=== PATIENT | female | born 1995 | race Caucasian/White ===

== ENCOUNTER → 2017-06-07 | Outpatient (CLI) | payer MEDICAID | LOC: LAB 16:56 | PROVIDERS: ATTEND Nurse Practitioner Acute Care | DX: R68.89 Other general symptoms and signs (principal) | CPT/HCPCS: 87804 ==

== ENCOUNTER → 2018-06-02 | Outpatient (CLI) | payer MEDICAID ==
[2018-06-02 14:35] LABS: T.VAGINALIS (WET MOUNT) NO TRICHOMONAS SEEN
[2018-06-02 14:36] LABS: BACTERIA (WET MOUNT) 4+ BACTERIA SEEN; EPITHELIALS (WET MOUNT) 4+ EPITHELIALS SEEN; RBCS (WET MOUNT) NO RBCS SEEN; WBCS (WET MOUNT) 3+ WBCS SEEN; YEAST (WET MOUNT) NO YEAST SEEN
[2018-06-02 16:09] LABS: CHLAM PCR NOT DETECTED (NOT DETECT); GON PCR NOT DETECTED (NOT DETECT)
== END ==
LOC: LAB 14:24
PROVIDERS: ATTEND Nurse Practitioner Family
DX: N89.8 Other specified noninflammatory disorders of vagina (principal); R30.0 Dysuria
CPT/HCPCS: 87086; 87210; 87491; 87591

== ENCOUNTER 2019-02-25 14:56 | Outpatient (CLI) | payer MEDICAID ==
[2019-02-25 15:26] LABS: ABSOLUTE BASOPHILS # (AUTO) 0.1 10^3/uL (0.0-0.2); ABSOLUTE EOSINOPHILS # (AUTO) 0.1 10^3/uL (0.0-0.6); ABSOLUTE LYMPHOCYTES (AUTO) 1.8 10^3/uL (0.5-4.7); ABSOLUTE MONOCYTES (AUTO) 0.7 10^3/uL (0.1-1.4); ABSOLUTE NEUT (AUTO) 8.7 10^3/uL (1.7-8.2); BASOPHILS % (AUTO) 0.6 % (0-2); EOSINOPHILS % (AUTO) 0.8 % (0-6); HEMATOCRIT 38.1 % (36.0-47.0); HEMOGLOBIN 12.6 g/dL (12.0-15.5); LYMPHOCYTES % (AUTO) 16.1 % (13-45); MEAN CORPUSCULAR HEMOGLOBIN 26.2 pg (27.0-33.4); MEAN CORPUSCULAR HGB CONC 33.1 g/dL (32.0-36.0); MEAN CORPUSCULAR VOLUME 79 fl (80-97); MONOCYTES % (AUTO) 6.1 % (3-13); PLATELET COUNT 392 10^3/uL (150-450); RED BLOOD COUNT 4.81 10^6/uL (3.72-5.28); RED CELL DISTRIBUTION WIDTH 19.3 % (11.5-14.0); SEGMENTED NEUTROPHILS % (AUTO) 76.4 % (42-78); TOTAL CELLS COUNTED % (AUTO) 100 %; WHITE BLOOD COUNT 11.5 10^3/uL (4.0-10.5)
[2019-02-25 15:43] LABS: ALANINE AMINOTRANSFERASE 21 U/L (9-52); ALBUMIN 3.6 g/dL (3.5-5.0); ALKALINE PHOSPHATASE 299 U/L (38-126); ANION GAP 9 (5-19); ASPARTATE AMINO TRANSFERASE 17 U/L (14-36); BILIRUBIN,DIRECT 0.3 mg/dL (0.0-0.4); BILIRUBIN,TOTAL 0.4 mg/dL (0.2-1.3); BLOOD UREA NITROGEN 7 mg/dL (7-20); CALCIUM 9.8 mg/dL (8.4-10.2); CARBON DIOXIDE 25 mmol/L (22-30); CHLORIDE 103 mmol/L (98-107); GLUCOSE 83 mg/dL (75-110); POTASSIUM 4.7 mmol/L (3.6-5.0); SODIUM 137.1 mmol/L (137-145); TOTAL PROTEIN 6.8 g/dL (6.3-8.2); URIC ACID 5.1 mg/dL (2.5-6.2)
[2019-02-25 15:44] LABS: APPEARANCE,URINE CLOUDY; BILIRUBIN,URINE NEGATIVE (NEGATIVE); COLOR,URINE YELLOW; GLUCOSE, URINE NEGATIVE (NEGATIVE); KETONES,URINE NEGATIVE (NEGATIVE); LEUKOCYTE ESTERASE,URINE LARGE (NEGATIVE); NITRITE,URINE NEGATIVE (NEGATIVE); PROTEIN,URINE 30 mg/dL (NEGATIVE); URINE SPECIFIC GRAVITY 1.016
[2019-02-25 16:06] LABS: UR PRO/CREAT RATIO RESULT 0.3 mg/mg (0.0-0.2); URINE CREATININE 130.7 mg/dL (16-327); URINE PROTEIN 40.3 mg/dL (<12)
[2019-02-25 16:18] LABS: URINE AMPHETAMINES SCREEN NEGATIVE; URINE BARBITURATES SCREEN NEGATIVE; URINE BENZODIAZEPINES SCREEN NEGATIVE; URINE COCAINE SCREEN NEGATIVE; URINE MARIJUANA (THC) SCREEN NEGATIVE; URINE METHADONE SCREEN NEGATIVE; URINE PHENCYCLIDINE SCREEN NEGATIVE
[2019-02-25] MEDS ORDERED: BETAMET ACET/BETAMET NA INJ 6 MG/1 ML IM ONE (16:27)
[2019-02-25] MEDS ORDERED: BETAMET ACET/BETAMET NA INJ 6 MG/1 ML ONE (17:30)
--- NOTE | 2019-02-25 17:41 | RADIOLOGY REPORT (SQ) ---
EXAM DESCRIPTION: U/S PROFILE W/O STRESS COMPLETED DATE/TIME: 02/25/2019 5:25 pm REASON FOR STUDY: bpp for IUGR COMPARISON: None. TECHNIQUE: Limited estrada-scale realtime and static images of the fetus to measure specified parameter s. LIMITATIONS: None. FINDINGS: HEART RATE: 147 beats per minute. MARAL: 17.4 cm. BREATHING MOVEMENT: 2 points. MOVEMENT: 2 points. POSTURE AND TONE: 2 points. QUALITATIVE MARAL: 2 points. OTHER: Breech lie. IMPRESSION: BIOPHYSICAL PROFILE: 04/03. Trimester of : Third - 28 weeks to delivery COMMENT: BREATHING MOVEMENTS: 2 POINTS: PRESENT 0 POINTS: ABSENT MOTION: 2 POINTS: PRESENT 0 POINTS: ABSENT TONE: 2 POINTS: PRESENT 0 POINTS: ABSENT AMNIOTIC FLUID VOLUME: 2 POINTS: LARGEST POCKET GREATER THAN 2 CM DEPTH. 0 POINTS: NO POCKET OF 2 CM. TECHNICAL DOCUMENTATION: JOB ID: [id number] [employer]- All Rights Reserved Reading location - IP/workstation name: [email or web address]
== END 2019-02-25 18:00 | disposition home or self-care (01) ==
LOC: LC 14:56
PROVIDERS: ATTEND Obstetrics & Gynecology Gynecology
DX: O16.9 Unspecified maternal hypertension, unspecified trimester (principal)
CPT/HCPCS: 59025; 96372; 36415; 87086; 83615; 84156; 84550; 82570; 85025; 81005; 87088; 80053; 87186; 80307; 76819; J0702

== ENCOUNTER 2019-02-26 23:13 | Outpatient (CLI) | payer MEDICAID ==
[2019-02-27] MEDS ORDERED: CEFTRIAXONE INJ 1000 MG VIAL ONE (00:22)
[2019-02-27] MEDS ORDERED: BETAMET ACET/BETAMET NA INJ 6 MG/1 ML ONE (00:23)
[2019-02-27] MEDS ORDERED: LIDOCAINE 1% INJ-PF (10 MG/ML) 30 ML SDV ONE (00:28)
[2019-02-27] MEDS ORDERED: BETAMET ACET/BETAMET NA INJ 6 MG/1 ML IM ONE (00:30)
[2019-02-27] MEDS ORDERED: CEFTRIAXONE INJ 1000 MG VIAL IM ONE (00:45)
[2019-02-27] MEDS ORDERED: LIDOCAINE 1% INJ-PF (10 MG/ML) 30 ML SDV INJ ONE (00:45)
--- NOTE | 2019-02-27 01:24 | Non Stress Test Report ---
Non Stress Test Datetime Report Generated by CPN: 02/27/2019 01:24 DEMOGRAPHIC EGA NST: 36.2 EGA NST: 36.1 INDICATION Indication for Study: Other Indication for Study: Ordered by Provider Indication for Study (NST) Other: LC-Back pain MONITORING Monitor Explained: Monitor Explained; Test Explained; Patient Verbalized Understanding Monitor Explained: Monitor Explained; Test Explained; Patient Verbalized Understanding Time on Monitor: 02/26/2019 23:37 Time on Monitor: 02/25/2019 15:08 Time off Monitor: 02/27/2019 00:43 Time off Monitor: 02/25/2019 17:50 NST Duration: 66 NST Duration: 162 NST INTERVENTIONS NST Interventions: None NST Interventions: PO Hydration Physician Notified NST: Peterson Physician Notified NST: A. London CNM BABY A: [id number] BABY A Movement : Present Movement : Present Contraction Frequency : none Contraction Frequency : OCC FHR Baseline : 135 FHR Baseline : 150 Accelerations : 15X15 Accelerations : 15X15 Decelerations : None Decelerations : None Variability : Moderate 6-25bpm Variability : Moderate 6-25bpm NST Review: Meets Criteria for Reactive NST NST Review: Meets Criteria for Reactive NST NST Review and Verified By : yuri acosta NST Review and Verified By : RAO DODGE RN NST Results: Reactive NST Results: Reactive NST REPORT Report Trigger: Send Report
== END 2019-02-27 00:55 | disposition home or self-care (01) ==
LOC: LC 23:13
PROVIDERS: ATTEND Student in an Organized Health Care Education/Training Program
DX: O47.03 False labor before 37 completed weeks of gestation, third trimester (principal); Z3A.36 36 weeks gestation of pregnancy; O23.43 Unspecified infection of urinary tract in pregnancy, third trimester
CPT/HCPCS: 59025; 96372; J3490; J0702; J0696

== ENCOUNTER 2019-02-27 10:48 | Outpatient (CLI) | payer MEDICAID ==
--- NOTE | 2019-02-27 11:24 | Non Stress Test Report ---
Non Stress Test Datetime Report Generated by CPN: 02/27/2019 11:24 DEMOGRAPHIC EGA NST: 36.3 INDICATION Indication for Study: Ordered by Provider VITAL SIGNS Temperature - NST: 98.0 Pulse - NST: 82 RESP - NST: 18 NBPSYS NST: 124 NBPDIA NST: 82 MONITORING Monitor Explained: Monitor Explained; Test Explained; Patient Verbalized Understanding Time on Monitor: 02/27/2019 11:01 Time off Monitor: 02/27/2019 11:21 NST Duration: 20 NST INTERVENTIONS NST Interventions: None Physician Notified NST: Dr. Jones BABY A: [id number] Movement : Present Contraction Frequency : none FHR Baseline : 135 Accelerations : 15X15 Variability : Moderate 6-25bpm NST Review: Meets Criteria for Reactive NST NST Review and Verified By : Lorelei Snowden RN NST Results: Reactive NST REPORT Report Trigger: Send Report
--- NOTE | 2019-02-27 13:18 | RADIOLOGY REPORT (SQ) ---
EXAM DESCRIPTION: U/S PROFILE W/O STRESS COMPLETED DATE/TIME: 02/27/2019 12:35 pm REASON FOR STUDY: BPP office closed failed previouse attempt COMPARISON: 02/25/2019 TECHNIQUE: Limited estrada-scale realtime and static images of the fetus to measure specified parameter s. LIMITATIONS: None. FINDINGS: HEART RATE: 144 beats per minute. MARAL: 13.6 cm. BREATHING MOVEMENT: 2 points. MOVEMENT: 2 points. POSTURE AND TONE: 2 points. QUALITATIVE MARAL: 2 points. OTHER: Fetus breech orientation IMPRESSION: BIOPHYSICAL PROFILE: 04/03. Trimester of : Third - 28 weeks to delivery COMMENT: BREATHING MOVEMENTS: 2 POINTS: PRESENT 0 POINTS: ABSENT MOTION: 2 POINTS: PRESENT 0 POINTS: ABSENT TONE: 2 POINTS: PRESENT 0 POINTS: ABSENT AMNIOTIC FLUID VOLUME: 2 POINTS: LARGEST POCKET GREATER THAN 2 CM DEPTH. 0 POINTS: NO POCKET OF 2 CM. TECHNICAL DOCUMENTATION: JOB ID: [id number]- All Rights Reserved Reading location - IP/workstation name: [email or web address]
== END 2019-02-27 13:37 | disposition home or self-care (01) ==
LOC: LC 10:48
PROVIDERS: ATTEND Obstetrics & Gynecology Gynecology
DX: O36.8330 Maternal care for abnormalities of the fetal heart rate or rhythm, third trimester, not applicable or unspecified (principal); Z3A.36 36 weeks gestation of pregnancy
CPT/HCPCS: 59025; 76819

== ENCOUNTER 2019-02-28 10:44 | Inpatient (IN) | payer MEDICAID ==
[2019-02-28 11:17] LABS: APPEARANCE,URINE SLIGHTLY-CLOUDY; BILIRUBIN,URINE NEGATIVE (NEGATIVE); COLOR,URINE YELLOW; GLUCOSE, URINE NEGATIVE (NEGATIVE); KETONES,URINE NEGATIVE (NEGATIVE); LEUKOCYTE ESTERASE,URINE MODERATE (NEGATIVE); NITRITE,URINE NEGATIVE (NEGATIVE); PROTEIN,URINE 30 mg/dL (NEGATIVE); URINE SPECIFIC GRAVITY 1.011; UROBILINOGEN,URINE NEGATIVE mg/dL (<2.0)
[2019-02-28 11:34] LABS: URINE AMPHETAMINES SCREEN NEGATIVE; URINE BARBITURATES SCREEN NEGATIVE; URINE BENZODIAZEPINES SCREEN NEGATIVE; URINE COCAINE SCREEN NEGATIVE; URINE MARIJUANA (THC) SCREEN NEGATIVE; URINE METHADONE SCREEN NEGATIVE; URINE PHENCYCLIDINE SCREEN NEGATIVE
[2019-02-28] MEDS ORDERED: HYDRALAZINE HCL INJ/PF 20 MG/1 ML SDV ONE (12:14)
[2019-02-28] MEDS ORDERED: MISOPROSTOL 0.2 MG TABLET ONE (12:22)
[2019-02-28] MEDS ORDERED: LIDOCAINE 1% INJ-PF (10 MG/ML) 30 ML SDV ONE (12:22)
[2019-02-28] MEDS ORDERED: OXYTOCIN 10 UNIT/ML VIAL ONE ×2 (12:22→12:47)
[2019-02-28] MEDS ORDERED: OXYTOCIN/NORMAL SALINE 0 UNIT/0 ML RTUINJ ONE (12:22)
[2019-02-28] MEDS ORDERED: CITRIC ACID/SODIUM CITRATE ORAL SOLN 15 ML UDCUP ONE (12:30)
[2019-02-28] MEDS ORDERED: CEFAZOLIN 2 GM/D5W RTU 2 GM/50 ML RTUPB IV ONE (12:31)
[2019-02-28] MEDS ORDERED: CEFAZOLIN SODIUM 1 GM in DEXTROSE 5%-WATER 50 ML IV PRN (12:35)
[2019-02-28] MEDS ORDERED: PROPOFOL INJ 200 MG/20 ML VIAL IV ONE (12:46)
[2019-02-28] MEDS ORDERED: ONDANSETRON HCL INJ/PF 4 MG/2 ML SDV ONE (12:46)
[2019-02-28] MEDS ORDERED: MIDAZOLAM 2 MG/2 ML INJ ONE (12:46)
[2019-02-28] MEDS ORDERED: FENTANYL CITRATE INJ/PF 100 MCG/2 ML AMPUL ONE ×2 (12:47→12:59)
[2019-02-28] MEDS ORDERED: MORPHINE SULFATE 10 MG/ML INJ ONE ×2 (12:59→17:55)
[2019-02-28] MEDS ORDERED: MORPHINE SULFATE 10 MG/ML INJ IV PRN (13:22)
[2019-02-28] MEDS ORDERED: MEASLES,MUMPS&RUBELLA VACC/PF 0.5 ML VIAL SUBCUT PRN (13:22)
[2019-02-28] MEDS ORDERED: PROMETHAZINE HCL INJ 25 MG/1 ML VIAL IV PRN (13:22)
[2019-02-28] MEDS ORDERED: DIPH/PERTUSS(ACELL)/TETANUS VAC/PF 0.5 ML SYR (>=10YO) IM PRN (13:22)
[2019-02-28] MEDS ORDERED: ACETAMINOPHEN 325 MG TABLET PO PRN (13:22)
[2019-02-28] MEDS ORDERED: OXYCODONE-ACETAMINOPHEN 5-325 MG TABLET PO PRN (13:22)
[2019-02-28] MEDS ORDERED: OXYTOCIN/NORMAL SALINE 20 UNIT/1,000 ML RTUINJ IV PRN (13:22)
[2019-02-28] MEDS ORDERED: RINGERS SOLUTION,LACTATED 1,000 ML IV PRN (13:22)
[2019-02-28] MEDS ORDERED: SIMETHICONE 80 MG TAB.CHEW PO PRN (13:22)
[2019-02-28] MEDS ORDERED: AMPICILLIN SOD/SULBACTAM 3 GM VIAL IV SCH (13:30)
--- NOTE | 2019-02-28 13:42 | RADIOLOGY REPORT (SQ) ---
EXAM DESCRIPTION: KUB/ABDOMEN (SINGLE VIEW) COMPLETED DATE/TIME: 02/28/2019 1:34 pm REASON FOR STUDY: no count c/s COMPARISON: None. NUMBER OF VIEWS: One view. TECHNIQUE: Supine radiographic image of the abdomen acquired. LIMITATIONS: None. FINDINGS: No radiopaque surgical material or instrument identified about the included portion of the mid abdomen and pelvis. Large burden of stool in the colon. Goldsmith catheter in the bladder. IMPRESSION: No radiopaque surgical material or instrument identified about the included portion of t he mid abdomen and pelvis. Large burden of stool in the colon. Goldsmith catheter in the bladder. TECHNICAL DOCUMENTATION: JOB ID: [id number] [employer]- All Rights Reserved Reading location - IP/workstation name: [email or web address]
--- NOTE | 2019-02-28 13:53 | Admission Physical ---
Datetime Report Generated by CPN: 02/28/2019 13:52 CURRENT ADMISSION Chief Complaint: Uterine Contractions Indication for Induction: Not Applicable Admit Impression : Active Labor; Intact Membranes Admit Impression- Other: Pre-Eclampsia with severe range BPs today Breech presentation Complete dilation per RN with BBOW no presenting part identified per engraving press operator Plan: Initiate Section Protocol Admit Plan- Other: Treated for UTI, started on Macrobid yesterday Dr. Elam notified immediately, orders for stat CS recieved ALLERGIES Medication Allergies: No Medication Allergies: No Known Allergies (02/28/2019) Latex: Unknown OBSTETRICAL HISTORY EDC: 03/24/2019 00:00 : 1 Gestational Diabetes: Yes Rh Sensitization: No Incompetent Cervix: No LAURA: No Infertility: No ART Treatment: No Uterine Anomaly: No IUGR: No Hx Previous C/S: No Macrosomia: No Hx Loss/Stillborn: No PIH: No Hx : No Placenta Previa/Abruption: No Depression/PP Depression: No PTL/PROM: No Post Hemorrhage: No Current Procedures: Ultrasound; NST Obstetrical History Comments: G1- current SEE RECORDS Alcohol: No Marijuana : No Cocaine: No Other Illicit Drugs: No Cigarettes: Never Smoker. 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 Surgery: No Heart Disease: No Hosp/Surgery: No Autoimmune Disorder: No Anesthetic Complications: No Kidney Disease: No Abnormal Pap Smear: No Neuro/Epilepsy: No Psychiatric Disorders: No Other Medical Diseases: No Hepatitis/Liver Disease: No Significant Family History: No Varicosities/Phlebitis: No Trauma/Violence : No Thyroid Dysfunction: No INFECTIOUS HISTORY Gonorrhea: No Genital Herpes: No Chlamydia: No Tuberculosis: No Syphilis: No Hepatitis: No HIV/AIDS Exposure: No Rash or Viral Illness: No HPV: No PHYSICAL EXAM General: Normal HEENT: Deferred Neurologic: Normal Thyroid: Deferred Heart: Normal Lungs: Normal Breast: Deferred Back: Deferred Abdomen: Normal Genitourinary Exam: Normal Extremities: Deferred DTRs: Deferred Pelvic Type: Not Done Physical Exam Comments: Limited exam due to emergency, pt c/o wanting to push with known breech presentation Cervix exam per RN Vital Signs: Reviewed FETUS A EGA: 36.4 Monitoring: External US FHR- Baseline: 150 Variability: Moderate 6-25bpm Presentation: Breech Admit Comment: Labor check report called to me that patient was in pain from UTI, had elevated BPs and elevated 24*urine >900 and known breech presentation Dr. Elam notified immediately, orders to admit for CS and give hydralazine based on severe range BPs Received another call shortly after within about 10 minutes stating that patient was fully dilated and wanting to push. Dr. Elam notified again, orders for Stat CS recieved. PLANS FOR LABOR AND DELIVERY Labor and Delivery: None Pain Management: Epidural Feeding Preference: Both Benefit of Breast Feed Discussed: Yes Circumcision: Yes INFORMED CONSENT Assignment: Graciela Elam MD Signature: with User ID: [email or web address] : with User ID: [email or web address]
--- NOTE | 2019-02-28 13:54 | OPERATIVE REPORT E ---
Operative Report NAME: PING CAMARA : 1995 AGE: 23Y DATE OF SURGERY: 02/28/2019 ROOM: LR200 PREOPERATIVE DIAGNOSES: 1. A 36 weeks and 4 days labor, breech presentation. 2. Pre-eclampsia. POSTOPERATIVE DIAGNOSES: 1. A 36 weeks and 4 days labor, breech presentation. 2. Pre-eclampsia. SURGEON: JOSE ANGEL DRUMMOND M.D. ANESTHESIA: Dr. Parker with general. FINDINGS: Male in ruddy breech presentation deep in the pelvis. Apgars of 5 and 9. COMPLICATIONS: None. ESTIMATED BLOOD LOSS: 750 mL. SPECIMENS REMOVED: None. PROCEDURE: Primary STAT low transverse hysterotomy section with extension into the active segment by T incision. PROCEDURE IN DETAIL: The patient was taken to the operating room and prepared and draped in the normal sterile fashion in the supine position with a leftward tilt. A transverse skin incision was made with a scalpel and carried through to the underlying layer of fascia. With the same scalpel, the fascia was excised in the midline and extended laterally with Patel's. The rectus muscle was dissected from the fascia bluntly and the rectus muscle was divided. The peritoneal cavity was entered bluntly. The bladder blade was inserted. The hysterotomy was nicked with the scalpel and extended laterally with surgeon finger fracture. Delivery of the feet was difficult and required several attempts, but finally, feet were delivered out of the pelvis, and it was noted that the infant was in a face-up presentation at this point. We continued with delivery, sweeping the arms and legs using Pinard maneuvers as needed, and we attempted to elevate the feet over the patient's abdomen and delivered the head; however, this was unsuccessful, so I took a pair of bandage scissors and cut vertically up the uterus to allow for additional room. I attempted once more to deliver the infant's head and this was unsuccessful. I tried to place my hand behind the 's head to facilitate delivery, but the uterus was contracted significantly around the . I then extended the incision once more with the bandage scissors, and at this point, we were able to successfully deliver baby. The cord was clamped and cut and the was handed off to awaiting pediatricians. Cord blood was collected. The placenta was removed manually. The uterus was exteriorized and cleared of clots and debris. The hysterotomy was closed with 0 Monocryl in a running locked fashion and the same suture was used to imbricate to ensure hemostasis. The vertical segment was also closed using a running, locked method using 0 Monocryl. The uterus was returned to the abdomen and piece of Interceed was placed along the incision site. The rectus muscle and peritoneum were reapproximated with 2 mattress stitches of 2-0 Chromic. The fascia was closed with 0 Vicryl, the subcutaneous layer was closed with plain catgut, and the skin was closed with 4-0 Vicryl. The patient tolerated the procedure well and went to PACU in stable condition. An x-ray was performed at the end of the case to ensure counts, and this was negative. DICTATING PHYSICIAN: JOSE ANGEL DRUMMOND M.D. [id number] PHY#: [id number] ID: [id number] JOB#: [id number] ACCT: [id number] cc:JOSE ANGEL DRUMMOND M.D. >
[2019-02-28] MEDS ORDERED: ACETAMINOPHEN 1,000 MG/100 ML RTUPB IV PRN (14:00)
[2019-02-28] MEDS ORDERED: ACETAMINOPHEN 1,000 MG/100 ML RTUPB IV ONE (14:04)
[2019-02-28] MEDS ORDERED: MEPERIDINE HCL/PF INJ 25 MG/1 ML DISP.SYRIN ONE (14:22)
[2019-02-28] MEDS ORDERED: KETOROLAC TROMETHAMINE INJ/PF 30 MG/1 ML SDV ONE (14:27)
[2019-02-28] MEDS: KETOROLAC TROMETHAMINE INJ/PF 30 MG/1 ML SDV IV SCH (14:31)
[2019-02-28] MEDS ORDERED: SUCCINYLCHOLINE CHLORIDE INJ 200 MG/10 ML VIAL ONE (14:54)
[2019-02-28] MEDS ORDERED: MAGNESIUM SULFATE 20 GM/500 ML RTUINJ IV ONE (15:00)
[2019-02-28] MEDS ORDERED: MAGNESIUM SULFATE 4 GM/100 ML RTUPB IV ONE (15:00)
[2019-02-28] MEDS ORDERED: OXYTOCIN/NORMAL SALINE 20 UNIT/1,000 ML RTUINJ ONE (15:03)
[2019-02-28] MEDS ORDERED: MAGNESIUM SULFATE PF/INJ 40 MEQ/10 ML SDV IV ONE (15:04)
[2019-02-28] MEDS ORDERED: MAGNESIUM SULFATE 20 GM/500 ML IV PRN (15:32)
[2019-02-28 16:14] LABS: ABSOLUTE BASOPHILS # (AUTO) 0.1 10^3/uL (0.0-0.2); ABSOLUTE LYMPHOCYTES (AUTO) 1.5 10^3/uL (0.5-4.7); ABSOLUTE MONOCYTES (AUTO) 0.9 10^3/uL (0.1-1.4); ABSOLUTE NEUT (AUTO) 11.9 10^3/uL (1.7-8.2); BASOPHILS % (AUTO) 0.7 % (0-2); EOSINOPHILS % (AUTO) 0.2 % (0-6); HEMATOCRIT 34.4 % (36.0-47.0); HEMOGLOBIN 11.3 g/dL (12.0-15.5); LYMPHOCYTES % (AUTO) 10.1 % (13-45); MEAN CORPUSCULAR HEMOGLOBIN 26.3 pg (27.0-33.4); MEAN CORPUSCULAR HGB CONC 32.8 g/dL (32.0-36.0); MEAN CORPUSCULAR VOLUME 80 fl (80-97); MONOCYTES % (AUTO) 6.5 % (3-13); PLATELET COUNT 365 10^3/uL (150-450); RED BLOOD COUNT 4.29 10^6/uL (3.72-5.28); RED CELL DISTRIBUTION WIDTH 19.5 % (11.5-14.0); SEGMENTED NEUTROPHILS % (AUTO) 82.5 % (42-78); TOTAL CELLS COUNTED % (AUTO) 100 %; WHITE BLOOD COUNT 14.4 10^3/uL (4.0-10.5)
[2019-02-28 16:33] LABS: ALANINE AMINOTRANSFERASE 22 U/L (9-52); ALKALINE PHOSPHATASE 234 U/L (38-126); ANION GAP 9 (5-19); ASPARTATE AMINO TRANSFERASE 23 U/L (14-36); BILIRUBIN,DIRECT 0.2 mg/dL (0.0-0.4); BILIRUBIN,TOTAL 0.2 mg/dL (0.2-1.3); BLOOD UREA NITROGEN 8 mg/dL (7-20); CALCIUM 8.5 mg/dL (8.4-10.2); CARBON DIOXIDE 23 mmol/L (22-30); CHLORIDE 104 mmol/L (98-107); GLUCOSE 82 mg/dL (75-110); POTASSIUM 3.8 mmol/L (3.6-5.0); SODIUM 135.8 mmol/L (137-145); TOTAL PROTEIN 5.8 g/dL (6.3-8.2); URIC ACID 5.8 mg/dL (2.5-6.2)
--- NOTE | 2019-02-28 17:21 | Delivery Summary ---
Del Sum A-C Datetime Report Generated by CPN: 02/28/2019 17:21 DELIVERY PERSONNEL DELIVERY PERSONNEL: [id number] Delivery Doctor:: Graciela Elam MD Anesthesiologist:: Beronica Parker MD MERCHANDISE SUPERVISOR:: Cosme Roa CRNA Labor and Delivery Nurse:: Keila Donaldson RN Commercial Fisher:: Keila Donaldson RN Commercial Green Building Architect:: Dr. Adriel Akers Nurse Nurse:: Breanna Henriquez RN Editor Map/WILDLIFE CONTROL OPERATOR: Cassidy Vazquez RN Editor Map/WILDLIFE CONTROL OPERATOR: ST Tasha Additional Personnel: : Evette Cortez RNC MATERNAL INFORMATION Delivery Anesthesia: General Medications After Delivery: Other-Please Comment Meds After Delivery Comment: See Anesthesia record Maternal Complications: Other Complication Details: severe preeclampsia, transverse lie LABOR SUMMARY EDC: 03/24/2019 00:00 No. Babies in Womb: 1 Attempted: No Labor Anesthesia: None LABOR INFORMATION Reason for Induction: Not Applicable Complete Dilatation: 02/28/2019 12:20 Oxytocin: N/A Group B Beta Strep: unknown Antibiotics # of Doses: 0 Steroids Given: > 24 Hours before Delivery Reason Steroids Not Administered: Indication MEMBRANES Membranes Rupture Method: Artificial Rupture of Membranes: 02/28/2019 12:38 Length of Rupture (hr): 0.08 Amniotic Fluid Color: Clear Amniotic Fluid Amount: Moderate Amniotic Fluid Odor: Normal STAGES OF LABOR Stage 2 hr: 0 Stage 2 min: 23 Stage 3 hr: 0 Stage 3 min: 1 VAGINAL DELIVERY Episiotomy: None Laceration #1: None Laceration Extension #1: N/A Sponge Count Correct: N/A CSECTION DELIVERY Primary Indication: Transverse/Complex Presentation Secondary Indication: N/A CSection Urgency: Emergency CSection Incidence: Primary Labor: Labor Elective: Nonelective CSection Incision: Lower Uterine Transverse; T Extension of Incision BABY A INFORMATION Delivery Date/Time: 02/28/2019 12:43 Method of Delivery: Born in Route : No : N/A Forceps: N/A Vacuum Extraction: N/A Shoulder Dystocia : No PRESENTATION/POSITION BABY A Presentation: Breech Cephalic Presentation: N/A Vertex Position: n/a Breech Presentation: Single Footling PLACENTA INFORMATION BABY A Placenta Delivery Time : 02/28/2019 12:44 Placenta Method of Delivery: Manual Removal Placenta Status: Delivered SCORES BABY A Heart Rate 1 min: >100 bpm Resp Effort 1 min: Slow, Irregular Reflex Irritability 1 min: Grimace Muscle Tone 1 min: Some Flexion of Extremities Color 1 min: Blue/Pale Resuscitation Effort 1 min: Tactile Stimulation SCORE 1 MIN: 5 Heart Rate 5 min: >100 bpm Resp Effort 5 min: Good Cry Reflex Irritability 5 min: Cough or Sneeze or Pulls Away Muscle Tone 5 min: Active Motion Color 5 min: Body Sweet Water, Extremities Blue Resuscitation Effort 5 min: Tactile Stimulation SCORE 5 MIN: 9 INFANT INFORMATION BABY A Gestational Age at Delivery: 36.4 Gestational Status: Late - 34- 36.6 Weeks Outcome : Liveborn Condition : Stable Infant Sex: Male IDENTIFICATION BABY A Infant Verification Date/Time: 02/28/2019 12:45 ID Band Number: [id number] Mother's Name Verified: Yes RN Verifying Infant: J Field, RN Additional Verifying Personnel: Rere Cortez RNC WEIGHT/LENGTH BABY A Birthweight (gm): 1880 Weight (lb): 4 Infant Weight (oz): 2 Length (in): 17.00 Infant Length (cm): 43.18 CORD INFORMATION BABY A No. Cord Vessels: 3 Nuchal Cord : N/A Cord Blood Taken: Yes-For Eval (Mom's Blood Type - or O+) Infant Suction: Mouth; Nose; Pharynx ASSESSMENT BABY A Infant Complications: None Physical Findings at Delivery: Within Normal Limits Skin to Skin: Yes Commercial Green Building Architect/ALS Called : No Infant Care By: Rafa Henriquez RN Transferred To: NICU BABY B INFORMATION : N/A SIGNATURES : I was personally available for consultation and serving as supervising physician for the MLP.
[2019-02-28] MEDS ORDERED: DOCUSATE SODIUM 100 MG CAPSULE ONE (17:55)
[2019-02-28] MEDS: DOCUSATE SODIUM 100 MG CAPSULE PO SCH (18:04)
[2019-02-28] MEDS: AMPICILLIN SODIUM/SULBACTAM NA 3 GM in NORMAL SALINE 100 ML IV SCH (18:05)
[2019-03-01] MEDS ORDERED: FUROSEMIDE INJ/PF 20 MG/2 ML SDV IV ONE (01:12)
[2019-03-01] MEDS ORDERED: KETOROLAC TROMETHAMINE INJ/PF 30 MG/1 ML SDV ONE (01:15)
[2019-03-01] MEDS ORDERED: FUROSEMIDE INJ/PF 40 MG/4 ML SDV ONE (01:15)
[2019-03-01] MEDS: KETOROLAC TROMETHAMINE INJ/PF 30 MG/1 ML SDV IV SCH ×2 (01:20→10:07)
[2019-03-01] MEDS ORDERED: MAGNESIUM SULFATE 20 GM/500 ML RTUINJ IV ONE (01:25)
[2019-03-01] MEDS ORDERED: AMPICILLIN SOD/SULBACTAM 3 GM VIAL ONE (02:00)
[2019-03-01] MEDS: AMPICILLIN SODIUM/SULBACTAM NA 3 GM in NORMAL SALINE 100 ML IV SCH ×2 (02:05→10:46)
[2019-03-01] MEDS: OXYCODONE-ACETAMINOPHEN 5-325 MG TABLET PO PRN ×3 (05:27→16:42)
[2019-03-01] MEDS ORDERED: OXYCODONE-ACETAMINOPHEN 5-325 MG TABLET ONE (05:27)
[2019-03-01 06:40] LABS: HEMATOCRIT 32.6 % (36.0-47.0); HEMOGLOBIN 10.7 g/dL (12.0-15.5); MEAN CORPUSCULAR HEMOGLOBIN 26.6 pg (27.0-33.4); MEAN CORPUSCULAR HGB CONC 32.9 g/dL (32.0-36.0); MEAN CORPUSCULAR VOLUME 81 fl (80-97); PLATELET COUNT 313 10^3/uL (150-450); RED BLOOD COUNT 4.02 10^6/uL (3.72-5.28); RED CELL DISTRIBUTION WIDTH 19.9 % (11.5-14.0); WHITE BLOOD COUNT 14.1 10^3/uL (4.0-10.5)
[2019-03-01] MEDS ORDERED: KETOROLAC TROMETHAMINE INJ/PF 30 MG/1 ML SDV IV ONE (10:00)
[2019-03-01] MEDS: DOCUSATE SODIUM 100 MG CAPSULE PO SCH ×2 (10:08→17:27)
[2019-03-01] MEDS: PRENATAL VITAMIN W DHA CAPSULE PO SCH (10:08)
--- NOTE | 2019-03-01 10:32 | PDOC PROGRESS REPORT ---
Subjective-OB Progress Note for:: 03/01/19 Subjective: Pt resting, c/o pelvic pain. FC to BSD light yellow urine. She is otherwise doing well, post mag today with stable blood pressures. Bleeding normal per RN. Physical Exam (OB) Vital Signs: Temp Pulse Resp BP Pulse Ox 98.1 F 103 H 18 131/84 H 95 03/01/19 07:45 03/01/19 07:45 03/01/19 07:45 03/01/19 07:45 03/01/19 07:45 Intake & Output 02/28/19 03/01/19 03/02/19 06:59 06:59 06:59 Intake Total 100 Balance 100 Weight 103.4 kg - Dressing Removed: No Incision: Dressing, Well Approximated - Lochia Lochia Amount: Small 10-25 ml Lochia Color: Rubra/Red - Abdomen Description: Tender Fundal Description: Firm Fundal Height: u/u - u/2 Objective-Diagnostic Laboratory: 03/01/19 06:33 02/28/19 15:57 02/28/19 02/28/19 02/28/19 10:54 15:57 15:57 WBC 14.4 H RBC 4.29 Hgb 11.3 L Hct 34.4 L MCV 80 MCH 26.3 L MCHC 32.8 RDW 19.5 H Plt Count 365 Seg Neutrophils % 82.5 H Lymphocytes % 10.1 L Monocytes % 6.5 Eosinophils % 0.2 Basophils % 0.7 Absolute Neutrophils 11.9 H Absolute Lymphocytes 1.5 Absolute Monocytes 0.9 Absolute Eosinophils 0.0 Absolute Basophils 0.1 Sodium 135.8 L Potassium 3.8 Chloride 104 Carbon Dioxide 23 Anion Gap 9 BUN 8 Creatinine 0.38 L Est GFR ( Amer) > 60 Est GFR (Non-Af Amer) > 60 Glucose 82 Uric Acid 5.8 Calcium 8.5 Total Bilirubin 0.2 AST 23 ALT 22 Alkaline Phosphatase 234 H Total Protein 5.8 L Albumin 3.0 L Urine Color YELLOW Urine Appearance SLIGHTLY-CLOUDY Urine pH 8.0 Ur Specific Pollard 1.011 Urine Protein 30 H Urine Glucose (UA) NEGATIVE Urine Ketones NEGATIVE Urine Blood MODERATE H Urine Nitrite NEGATIVE Ur Leukocyte Esterase MODERATE H Urine WBC (Auto) 12 Urine RBC (Auto) 9 Blood Type Antibody Screen 02/28/19 03/01/19 03/01/19 15:57 06:33 06:33 WBC 14.1 H RBC 4.02 Hgb 10.7 L Hct 32.6 L MCV 81 MCH 26.6 L MCHC 32.9 RDW 19.9 H Plt Count 313 Seg Neutrophils % Lymphocytes % Monocytes % Eosinophils % Basophils % Absolute Neutrophils Absolute Lymphocytes Absolute Monocytes Absolute Eosinophils Absolute Basophils Sodium Potassium Chloride Carbon Dioxide Anion Gap BUN Creatinine Est GFR ( Amer) Est GFR (Non-Af Amer) Glucose Uric Acid Calcium Total Bilirubin AST ALT Alkaline Phosphatase Total Protein Albumin Urine Color Urine Appearance Urine pH Ur Specific Pollard Urine Protein Urine Glucose (UA) Urine Ketones Urine Blood Urine Nitrite Ur Leukocyte Esterase Urine WBC (Auto) Urine RBC (Auto) Blood Type A NEGATIVE A NEGATIVE Antibody Screen NEGATIVE Assessment and Plan(PN) - Assessment and Plan (1) Pre-eclampsia Qualifiers: Trimester: third trimester Qualified Code(s): O14.93 - Unspecified pre- eclampsia, third trimester Is this a current diagnosis for this admission?: Yes (2) Breech presentation Qualifiers: Fetus number: single or unspecified fetus Qualified Code(s): O32.1XX0 - Maternal care for breech presentation, not applicable or unspecified Is this a current diagnosis for this admission?: Yes (3) Intrauterine growth restriction (IUGR) affecting care of mother Qualifiers: Fetus number: single or unspecified fetus Trimester: third trimester Qualified Code(s): O36.5930 - Maternal care for other known or suspected poor growth, third trimester, not applicable or unspecified Is this a current diagnosis for this admission?: Yes (4) Urinary tract infection affecting care of mother in third trimester, an tepartum Is this a current diagnosis for this admission?: Yes (5) S/P emergency section Is this a current diagnosis for this admission?: Yes - Time Spent with Patient Time with patient: Less than 15 minutes Medications reviewed and adjusted accordingly: Yes - Disposition Anticipated Discharge: Home Within: within 48 hours
[2019-03-01] MEDS ORDERED: IBUPROFEN 800 MG TABLET PO SCH (12:00)
[2019-03-01] MEDS: IBUPROFEN 800 MG TABLET PO SCH (17:27)
[2019-03-02] MEDS: IBUPROFEN 800 MG TABLET PO SCH ×4 (00:22→17:38)
--- NOTE | 2019-03-02 09:00 | PDOC DISCHARGE SUMMARY ---
Final Diagnosis Discharge Date: 03/02/19 - Final Diagnosis (1) Pre-eclampsia Is this a current diagnosis for this admission?: Yes (2) Breech presentation Is this a current diagnosis for this admission?: Yes (3) Intrauterine growth restriction (IUGR) affecting care of mother Is this a current diagnosis for this admission?: Yes (4) Urinary tract infection affecting care of mother in third trimester, antepartum Is this a current diagnosis for this admission?: Yes (5) S/P emergency section Is this a current diagnosis for this admission?: Yes Discharge Data - Discharge Medication Home Medications: 95/Iron Fum/Folic/Dha [ + Dha Combo Pack] 1 cap PO DAILY 02/25/19 Reason(s) for Admission: Onset of Labor, Ceasarean Section-Primary, Labor, Medical Complications, Obstetric Complications Admission Note: Breech presentation, pre-eclampsia, labor, IUGR Intrapartum Procedure(s): : Low Cervical, Transverse Intrapartum Procedure Note: T incision - Diagnosis Test Laboratory: Temp Pulse Resp BP Pulse Ox 98.1 F 130 H 18 140/83 H 95 03/02/19 03:43 03/02/19 03:43 03/02/19 03:43 03/02/19 03:43 03/02/19 03:43 02/28/19 02/28/19 03/01/19 10:54 15:57 06:33 RBC 4.29 4.02 Hgb 11.3 L 10.7 L Hct 34.4 L 32.6 L Urine Opiates Screen NEGATIVE - Discharge information/Instructions Discharge Activity: Balance Activity w/Rest, No Lifting Over 10 Pounds, No Lifting/Push/Pulling, Pelvic Rest, No tub bath Discharge Diet: Regular Disposition: HOME, SELF-CARE Follow up with: [facility] in: 5, Days
[2019-03-02] MEDS: NIFEDIPINE 30 MG TAB.ER.24 PO SCH ×2 (10:00→10:04)
[2019-03-02] MEDS: DOCUSATE SODIUM 100 MG CAPSULE PO SCH ×2 (10:04→17:39)
[2019-03-02] MEDS: PRENATAL VITAMIN W DHA CAPSULE PO SCH (10:04)
--- NOTE | 2019-03-02 23:58 | EKG REPORT ---
SEVERITY:- OTHERWISE NORMAL ECG - SINUS TACHYCARDIA : Confirmed by: Chris Boyd 02-Mar-2019 23:57:35
[2019-03-03] MEDS: IBUPROFEN 800 MG TABLET PO SCH ×4 (00:25→17:36)
[2019-03-03] MEDS: DOCUSATE SODIUM 100 MG CAPSULE PO SCH ×2 (09:24→17:35)
[2019-03-03] MEDS: NIFEDIPINE 30 MG TAB.ER.24 PO SCH (09:24)
[2019-03-03] MEDS: PRENATAL VITAMIN W DHA CAPSULE PO SCH (09:24)
--- NOTE | 2019-03-03 10:14 | Progress Note ---
Provider Note Provider Note: was scheduled for discharge yesterday but had inc HR and cardiology consult was considered. pt stable today, no complaints, VSS. will be discharged to home today.
[2019-03-03 11:32] VITALS: BP 137/84
== END 2019-03-03 18:40 | disposition home or self-care (01) | DRG 786 ==
LOC: LC 10:44 → UNDOADMIN 12:19 → LR 12:19 → 2S 03-01 06:30
PROVIDERS: ADMIT Obstetrics & Gynecology; ATTEND Obstetrics & Gynecology
PROC: 10D00Z1 Extraction of Products of Conception, Low, Open Approach (ICD-10-PCS; principal; 2019-02-28)
DX: O32.8XX0 Maternal care for other malpresentation of fetus, not applicable or unspecified (principal); O60.14X0 Preterm labor third trimester with preterm delivery third trimester, not applicable or unspecified; O75.3 Other infection during labor; N39.0 Urinary tract infection, site not specified; O36.5930 Maternal care for other known or suspected poor fetal growth, third trimester, not applicable or unspecified; O14.14 Severe pre-eclampsia complicating childbirth; O24.429 Gestational diabetes mellitus in childbirth, unspecified control; Z3A.36 36 weeks gestation of pregnancy; Z37.0 Single live birth
CPT/HCPCS: 1961; 36415; 74018; 80053; 80307; 81001; 83615; 84550; 85027; 85461; 86592; 86850; 86900; 86901; 88307; 93005; 93010; 94799; J0131; J0295; J0330; J0360; J0690; J1885; J1940; J2175; J2250; J2270; J2405; J2590; J2704; J2790; J3010; J3475; J3490; J7050